=== PATIENT | male | born 1995 | race Caucasian/White ===

== ENCOUNTER 2022-02-16 15:10 | Emergency (ER) | payer OTHER ==
[~2022-02-16] VITALS: Ht 170.2 cm; Wt 79.0 kg
[2022-02-16 15:13] VITALS: BP 164/63
[2022-02-16] MEDS ORDERED: CAPS1ADH11 TOP (16:30)
== END 2022-02-16 17:07 | disposition home or self-care (01) ==
LOC: ER 15:11
DX: R51.9 Headache, unspecified (principal); I10 Essential (primary) hypertension; Z91.040 Latex allergy status; Z79.1 Long term (current) use of non-steroidal anti-inflammatories (NSAID)
CPT/HCPCS: 99282